=== PATIENT | female | born 1970 | race Caucasian/White ===

== ENCOUNTER → 2017-11-08 | Outpatient (CLI) | payer OTHER ==
[2017-11-08 14:31] VITALS: BP 130/82; PULSE 85; RESP 16
--- NOTE | 2017-11-08 15:08 | P.PAINCN ---
History of Present Illness - Reason for Consult Consult date: 11/08/17 - Chief Complaint neck pain - History of Present Illness This is a 47-year-old female presenting to the pain clinic for evaluation secondary multiple pain complaints. Patient is complaining mostly of neck pain which is been chronic in nature. She also has low back pain which is chronic in nature. She reports that her neck pain is worse than her back pain. She reports that her neck pain is mostly on the right side of her neck. She reports that the neck pain also extends into the right shoulder. She also reports multiple areas of tenderness to even light palpation over the neck and throughout the back. She reports her VAS today was from 6-10 out of 10 throughout most days and today her VAS is 7 out of 10. She reports that she has trialed multiple medications for fibromyalgia as well as pain medications. She reports she was seeing a pain doctor previously with trialed some injections and she is unsure what they were but it sounds like they were medial branch blocks. She never ended up having any further workup at that time consider no longer worked in that area. To resume her back pain she reports that she has back pain in the lumbar spine with all movements. She reports the back pain does not get better with anything the back pain is worse with all movements including at rest and lying down. She reports that the back pain is even worse when she elevates her legs off the bed. She reports no side effects from the medications. At this point she is currently taking gabapentin as she is tried Lyrica as well as Cymbalta for multiple years with no benefit. She has not had any physical therapy. In addition to above, 13-point review of systems is also negative for chest pain , shortness of breath, changes in vision, changes in hearing, new onset weakness , abdominal pain, diarrhea, extreme fatigue, malaise, fever, skin changes, homicidal or suicidal ideation, or bowel or bladder incontinence. Vital Signs: Reviewed in EMR Gen: WDWN, AAOx3, NAD HEENT: NCAT, EOMI, hearing grossly normal Pulm: resp unlabored Abd: soft, NT, ND Neck: supple, trachea midline ROM in flexion cervical spine: Normal range of motion ROM in extension cervical spine: Normal range of motion Cervical paravertebral tenderness: Tenderness to light touch Spurling's: Negative Upper extremity: She has normal 5 out of 5 strength in bilateral upper extremities she has decreased muscle tone bilaterally ROM in flexion lumbar spine: Limited range of motion with pain in all movements ROM in extension lumbar spine: Limited to about 5 Lumbar paravertebral tenderness: Tenderness to palpation throughout the lumbar spine Facet loading: Positive SI joint tenderness: Positive Straight leg raise: Negative bilaterally Lower extremity: decreased ROM dorsiflexion/plantarflexion strength, hip flexion/extension, and knee flexion/extension secondary to pain Neuro: CN II-XII grossly intact, muscle strength lower extremities PRESERVED Assessment: 1. Cervical spondylosis 2. Cervical degenerative disc disease 3. Cervical disc extrusion 4. Lumbar spondylosis Plan: 1. Explanation: Opioid and psychological risk scores were reviewed. Diagnoses , prognoses, and multiple treatment options including but not limited to physical therapy, interventional therapies, adjuvant medical therapies, narcotic medication therapies, and surgery were discussed with the patient and all questions were answered to the patient's satisfaction. 2. Opioid agreement: Patient signed narcotic agreement, and was orally counseled to not overuse, abuse, divert, or cell medications, and to take them as prescribed by only 1 healthcare provider. The patient was also counseled to take medications as prescribed by only 1 healthcare provider and to store opioid medications in the safe and preferably locked location. Patient was also counseled against driving or operating heavy equipment while using narcotic medications and also not use alcohol or any illicit or recreational drugs. The patient verbalized understanding that lack of compliance with any of the above and likely result in failure to renew narcotic prescriptions, possible discharge from the clinic, and possible legal ramifications thereafter if indicated. 3. Counseling: The patient was counseled extensively on SMOKING CESSATION, BODY MASS INDEX, EXERCISE. Specifically, the patient was instructed regarding the importance of smoking cessation, weight control, and exercise in the context of both chronic pain and overall health. 4. Procedures: Discussed in detail the patient regarding injections for her neck. I discussed a medial branch block in detail. Discussed the benefits and the risks with her and her . Patient is in agreement. I discussed expectations of the procedure. Discussed that the patient's sensitivity to light touch in the neck and tender points will not be improved but this may help in improving her range of motion and her pain in the neck only I explained to the patient that we will would perform a right-sided cervical medial branch block at the levels of C3 4, C56, C6 7, with local anesthetic only without any steroid. I advised her that we would give her sedation using Versed but no fund 5. Consultations: None 6. Investigations: maps 7. Medications: None 8. Disposition: Right-sided cervical medial branch block as noted above PQRS measures: 1-Patient's medications are documented in the chart. 2-Tobacco use is positive, counseling given. I advised the patient to stop smoking immediately as this can contribute reported to her health 3-Patient has not had a pneumococcal vaccine. 4-Advanced care planning discussed, patient unable to give. 5-Opioid contract signed with the patient. 6-Pain positive, follow-up visit or procedure scheduled 7-Patient's blood pressure measured and documented, and patient will follow up with the primary care due to hypertension. 8-Patient's weight was measured, and body mass index is above and counseling was done. I advised the patient trialed different diets exercise to improve her overall health 9-Patient WAS NOT identified as an unhealthy alcohol user. 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 History of Any Multi-Drug Resistant Organisms: None Reported Past Surgical History: Appendectomy, Heart Catheterization, Tonsillectomy, Tubal Ligation, Uterine Ablation Additional Past Surgical History / Comment(s): right hand tendon sx Past Anesthesia/Blood Transfusion Reactions: No Reported Reaction Past Psychological History: Anxiety, Depression, PTSD Smoking Status: Current every day smoker Past Alcohol Use History: None Reported Past Drug Use History: Marijuana - Past Family History Mother Family Medical History: Myocardial Infarction ([place]) Father Family Medical History: Myocardial Infarction ([place]) Medications and Allergies Allergies Allergy/AdvReac Type Severity Reaction Status Date / Time morphine Allergy Rash/Hives Verified 11/08/17 14:11 Penicillins Allergy Rash/Hives Verified 11/08/17 14:11 Physical Exam Vitals: Vital Signs Pulse Resp BP 11/08/17 14:18 85 16 130/82 Intake and Output 11/08/17 11/08/17 11/08/17 06:59 14:59 22:59 Other: Weight 73.936 kg PQRS Measure Charge Sheet PQRS Narrative: Smoking Status Current every day smoker Do You Want the Pneumonia No Vaccine AT THIS TIME? Blood Pressure 130/82 Pain Intensity [Bilateral 8 Lower Back] Scale Used Numeric (1 - 10) Hx Alcohol Use (MH) No
== END | disposition home or self-care (01) ==
LOC: PNWHC3 13:11
PROVIDERS: ATTEND Hospitalist
DX: M50.20 Other cervical disc displacement, unspecified cervical region (principal); M50.30 Other cervical disc degeneration, unspecified cervical region; M47.812 Spondylosis without myelopathy or radiculopathy, cervical region; M47.816 Spondylosis without myelopathy or radiculopathy, lumbar region; J45.909 Unspecified asthma, uncomplicated; I10 Essential (primary) hypertension; F17.200 Nicotine dependence, unspecified, uncomplicated; Z90.89 Acquired absence of other organs; Z98.51 Tubal ligation status; Z88.5 Allergy status to narcotic agent; Z88.0 Allergy status to penicillin
CPT/HCPCS: 99201

== ENCOUNTER 2018-08-25 21:25 | Observation (INO) | payer OTHER ==
[2018-08-25] MEDS ORDERED: SODIUM CHLORIDE 0.9% 1,000 ML IV STA ×2 (22:02)
[2018-08-25] MEDS ORDERED: KETOROLAC 30 MG/ML 1 ML VIAL IVP STA (22:03)
[2018-08-25] MEDS: NITROGLYCERIN SL TABS 0.4 MG TAB SUBLINGUAL STA ×3 (22:18→22:49)
[2018-08-25 22:19] LABS: Basophils # (A) 0.1 k/uL (0-0.2); Basophils % (A) 1 %; Eosinophils # (A) 0.2 k/uL (0-0.7); Eosinophils % (A) 3 %; HCT 41.9 % (34.0-46.0); HGB 14.4 gm/dL (11.4-16.0); Lymphocytes # (A) 2.3 k/uL (1.0-4.8); Lymphocytes % (A) 23 %; MCH 30.1 pg (25.0-35.0); MCHC 34.3 g/dL (31.0-37.0); MCV 87.8 fL (80.0-100.0); Mean Platelet Volume 8.4; Monocytes # (A) 0.6 k/uL (0-1.0); Monocytes % (A) 7 %; Neutrophils # (A) 6.4 k/uL (1.3-7.7); Neutrophils % (A) 66 %; Platelet Count 229 k/uL (150-450); RBC 4.77 m/uL (3.80-5.40); RDW 14.7 % (11.5-15.5); WBC 9.8 k/uL (3.8-10.6)
[2018-08-25 22:25] LABS: ALT 28 U/L (9-52); AST 25 U/L (14-36); African American GFR (CKD) >90 (>60 ml/min/1.73 sqM); Albumin 4.1 g/dL (3.5-5.0); Alkaline Phosphatase 94 U/L (38-126); Anion Gap 8 mmol/L; Blood Urea Nitrogen 10 mg/dL (7-17); Calcium 9.5 mg/dL (8.4-10.2); Carbon Dioxide 25 mmol/L (22-30); Chloride 107 mmol/L (98-107); Glucose 112 mg/dL (74-99); Magnesium 2.2 mg/dL (1.6-2.3); Non-African American GFR(CKD) 86 (>60 ml/min/1.73 sqM); Potassium 4.2 mmol/L (3.5-5.1); Sodium 140 mmol/L (137-145); Total Bilirubin 0.4 mg/dL (0.2-1.3); Total Protein 6.7 g/dL (6.3-8.2)
[2018-08-25 22:30] LABS: D-Dimer 0.37 mg/L FEU (<0.60); INR 0.9 (<1.2); Partial Thromboplastin Time 26.7 sec (22.0-30.0); Prothrombin Time 9.8 sec (9.0-12.0)
--- NOTE | 2018-08-25 22:59 | ED ---
Chest Pain HPI - General Source: patient, family, RN notes reviewed, old records reviewed Mode of arrival: wheelchair Limitations: no limitations <Cherelle Cancino - Last Filed: 08/26/18 00:11> <Meena Anne - Last Filed: 08/26/18 02:55> - General Chief Complaint: Chest Pain Stated Complaint: Syncope/CP Time Seen by Provider: 08/25/18 21:52 - History of Present Illness Initial Comments: Patient is a 48-year-old female who presents emergency Department after an episode of chest discomfort which later resulted to a syncopal episode after she was eating dinner today. Patient was seen at [facility] who did a complete workup including CT brain and C-spine, as well as chest x-ray and cardiac enzyme. Patient's labs and CTs reviewed to be normal, she was given aspirin that time. Patient's continues to state that she has 8 out of 10 chest pain. Patient refused EMS transfer from [place] and came down to this hospital on her own private vehicle. Patient's syncopal episode was asked by her significant other. She denies any fever or chills or cough. She states that her family history is positive for heart disease. She is a heavy smoker. Has history of hypertension and hyperlipidemia. Patient also complains of a headache upon arrival. She states that her chest pain seems to radiate towards her left jaw. (Cherelle Cancino) - Related Data Home Medications Medication Instructions Recorded Confirmed Beclomethasone Dipropionate [Qvar 1 puff INHALATION RT-BID 11/08/17 08/26/18 40 mcg Redihaler] Pantoprazole Sodium [Protonix] 20 mg PO DAILY 11/08/17 08/26/18 amLODIPine [Norvasc] 5 mg PO DAILY 11/08/17 08/26/18 Albuterol Inhaler [Ventolin Hfa 2 puff INHALATION RT-Q6H PRN 08/25/18 08/26/18 Inhaler] Losartan [Cozaar] 50 mg PO DAILY 08/25/18 08/26/18 Naproxen 375 mg PO Q8H PRN 08/25/18 08/26/18 Pravastatin Sodium [Pravachol] 20 mg PO HS 08/25/18 08/26/18 Topiramate [Topamax] 50 mg PO BID 08/25/18 08/26/18 Allergies Allergy/AdvReac Type Severity Reaction Status Date / Time morphine Allergy Rash/Hives Verified 08/25/18 23:58 Penicillins Allergy Rash/Hives Verified 08/25/18 23:58 Review of Systems ROS Other: All systems not noted in ROS Statement are negative. <Cherelle Cancino - Last Filed: 08/26/18 00:11> ROS Other: All systems not noted in ROS Statement are negative. <Meena Anne - Last Filed: 08/26/18 02:55> ROS Statement: Those systems with pertinent positive or pertinent negative responses have been documented in the HPI. EKG Findings - EKG Comments: EKG Findings:: EKG shows normal sinus rhythm normal EKG noted. Ventricular rate 67 bpm. Intervals 112 ms. Respirations a formal segs. QTc is 426/450 ms. 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 History of Any Multi-Drug Resistant Organisms: None Reported Past Surgical History: Appendectomy, Heart Catheterization, Tonsillectomy, Tubal Ligation, Uterine Ablation Additional Past Surgical History / Comment(s): right hand tendon sx Past Anesthesia/Blood Transfusion Reactions: No Reported Reaction Past Psychological History: Anxiety, Depression, PTSD Smoking Status: Current every day smoker Past Alcohol Use History: Occasional Past Drug Use History: Marijuana - Past Family History Mother Family Medical History: Myocardial Infarction ([place]) Father Family Medical History: Myocardial Infarction ([place]) <Cherelle Cacnino - Last Filed: 08/26/18 00:11> General Exam Limitations: no limitations <Cherelle Cancino - Last Filed: 08/26/18 00:11> - General Exam Comments Initial Comments: This is a 48-year-old female. Alert and oriented 3. No significant distress. General: Well appearing, well nourished, in no distress. Oriented x 3, normal mood and affect . Ambulating without difficulty. Skin: Good turgor, no rash, unusual bruising or prominent lesions Hair: Normal texture and distribution. HEENT: Head: Normocephalic, atraumatic, no visible or palpable masses, depressions, or scaring. Eyes: Visual acuity intact, conjunctiva clear, sclera non-icteric, EOM intact, PERRL. Ears: EACs clear, TMs translucent & cone of light visualized. hearing intact. Nose: No external lesions, mucosa non-inflamed, septum and turbinates normal Mouth: Mucous membranes moist, no mucosal lesions. Teeth/Gums: No obvious caries or periodontal disease. No gingival inflammation or significant resorption. Pharynx: Mucosa non-inflamed, no tonsillar hypertrophy or exudate Neck: Supple, without lesions, bruits, or adenopathy, thyroid non-enlarged and non-tender Heart: No cardiomegaly or thrills; regular rate and rhythm, no murmur or gallop Lungs: Clear to auscultation and percussion Abdomen: Bowel sounds normal, no tenderness, organomegaly, masses, or hernia Extremities: No amputations or deformities, cyanosis, edema or varicosities, peripheral pulses intact Musculoskeletal: Normal gait and station. No misalignment, asymmetry, crepitation, defects, tenderness, masses, effusions, decreased range of motion, instability, atrophy or abnormal strength or tone in the head, neck, spine, ribs, pelvis or extremities. Neurologic: CN 2-12 normal. Sensation to pain, touch, and proprioception normal. DTRs normal in upper and lower extremities. No pathologic reflexes. Psychiatric: Oriented X3, intact recent and remote memory, judgment and insight, normal mood and affect. 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 This is a 48-year-old female presents h[place] from today for evaluation for chest pain and syncopal episode. She had extensive workup at [facility]. Charting is attached. Upon vertigo transferred she's continues to complain of Chest Pain. She Did Receive Aspirin at Their Facility. Patient Is Given Nitro and Morphine Does Have Some Improvement of Her Symptoms. She Does Complain of a Headache and Jaw Pain. Patient's EKG Was Reviewed and Normal This Time. Her Initial Troponin Test Is Negative Here As Well. I Discussed with Multiple Risk Factors and Patient's Description of Anginal like Chest Pain We Will Admit the Patient for Evaluation for Cardiology. Patient Agrees to Treatment Plan Will Comply. (Cherelle Cancino) I was available for consultation in the emergency department. The history and physical exam were done by the midlevel provider. I was consulted for this patient's care. I reviewed the case with the midlevel provider and based on their presentation of the patient, I agree with the assessment, medical decision making and plan of care as documented. Chart was dictated using [employer] dictation software. Attempts were made to correct any dictation errors however some typographical errors may persist. (Meena Anne) Disposition Is patient prescribed a controlled substance at d/c from ED?: No Time of Disposition: 00:14 <Cherelle Cancino - Last Filed: 08/26/18 00:11> <Meena Anne - Last Filed: 08/26/18 02:55> Clinical Impression: Chest pain, Syncope Disposition: ADMITTED IP TO THIS HOSP Condition: Stable
[2018-08-25] MEDS ORDERED: NITROGLYCERIN SL TABS 0.4 MG TAB SUBLINGUAL PRN (23:33)
[2018-08-26] MEDS ORDERED: ALBUTEROL NEBULIZED 2.5 MG/3 ML INHALATION PRN (00:41)
[2018-08-26] MEDS ORDERED: ALPRAZolam 0.25 MG TAB PO PRN (01:03)
--- NOTE | 2018-08-26 01:12 | P.HPIM ---
History of Present Illness H&P Date: 08/26/18 Chief Complaint: chest pain 48-year-old female with history of hypertension and smoking Patient was at home staff baseline status of health when suddenly had felt chest pain. She was eating dinner then put the dishes away went back to sit on the table the table with her when she felt chest pressure over the left side squeezing in nature, 10 in severity radiating to the neck and left arm associated with nausea and vomiting sweating shortness of breath she felt like she is having a panic attack that she doesn't remember much until she fell off the chair and bumped her head and woke up she thinks that she passed out her confirms that she passed out is not available at her bedside at time of interview. He took her to [facility] where she was evaluated as seems like she had some cardiac enzymes EKG and CT of the head and C-spine and she was told that everything is fine . She was offered to be transferred by ambulance to our hospital she refused and decided to drive herself down here. Pain resolved after getting 3 tablets of nitro at our facility. EKG showed normal sinus rhythm. Labs are unremarkable. Patient admitted for observation to rule out acute coronary syndrome Patient denies any history of CAD in the past Review of Systems Pertinent positives as noted in HPI. 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 History of Any Multi-Drug Resistant Organisms: None Reported Past Surgical History: Appendectomy, Heart Catheterization, Tonsillectomy, Tubal Ligation, Uterine Ablation Additional Past Surgical History / Comment(s): right hand tendon sx Past Anesthesia/Blood Transfusion Reactions: No Reported Reaction Past Psychological History: Anxiety, Depression, PTSD Smoking Status: Current every day smoker Past Alcohol Use History: Occasional Past Drug Use History: Marijuana - Past Family History Mother Family Medical History: Myocardial Infarction ([place]) Father Family Medical History: Myocardial Infarction ([place]) Medications and Allergies Home Medications Medication Instructions Recorded Confirmed Type Beclomethasone Dipropionate [Qvar 1 puff INHALATION RT-BID 11/08/17 08/26/18 History 40 mcg Redihaler] Pantoprazole Sodium [Protonix] 20 mg PO DAILY 11/08/17 08/26/18 History amLODIPine [Norvasc] 5 mg PO DAILY 11/08/17 08/26/18 History Albuterol Inhaler [Ventolin Hfa 2 puff INHALATION RT-Q6H PRN 08/25/18 08/26/18 History Inhaler] Losartan [Cozaar] 50 mg PO DAILY 08/25/18 08/26/18 History Naproxen 375 mg PO Q8H PRN 08/25/18 08/26/18 History Pravastatin Sodium [Pravachol] 20 mg PO HS 08/25/18 08/26/18 History Topiramate [Topamax] 50 mg PO BID 08/25/18 08/26/18 History Allergies Allergy/AdvReac Type Severity Reaction Status Date / Time morphine Allergy Rash/Hives Verified 08/25/18 23:58 Penicillins Allergy Rash/Hives Verified 08/25/18 23:58 Physical Exam Vitals: Vital Signs Temp Pulse Pulse Resp BP Pulse Ox 08/25/18 22:50 72 16 125/87 96 08/25/18 22:20 78 08/25/18 22:18 72 16 138/94 96 08/25/18 21:31 97.5 F L 81 20 148/69 97 Intake and Output 08/25/18 08/25/18 08/26/18 14:59 22:59 06:59 Other: Weight 539.775 kg Constitutional: No acute distress, conversant, pleasant Eyes: Anicteric sclerae, moist conjunctiva, no lid-lag Pupils equal round reactive to light ENMT: NC/AT Oropharynx clear, no erythema, exudates Neck: Supple, FROM, no masses, or JVD No carotid bruits No thyromegaly Lungs: Clear to auscultation Clear to percussion Normal respiratory effort, no accessory muscle use Cardiovascular: Heart regular in rate and rhythm, No murmurs, gallops, or rubs No peripheral edema Abdominal: Soft Nontender, no guarding, rebound or rigidity Abdomen moving with respiration Normoactive bowel sounds No hepatomegaly, No splenomegaly No palpable mass No abdominal wall hernia noted Skin: Normal temperature, tone, texture, turgor No induration No subcutaneous nodules No rash, lesions No ulcers Extremities: No digital cyanosis No clubbing Pedal pulses intact and symmetrical Radial pulses intact and symmetrical No calf tenderness Psychiatric: Alert and oriented to person, place and time Appropriate affect fair judgement Neuro Muscles Strength 5/5 in all 4 extremities Sensation to light touch grossly present throughout Cranial nerves II-XII grossly intact No focal sensory deficits Lymphatics: no palpable cervical or supraclavicular , or inguinal lymph nodes Results CBC & Chem 7: 08/25/18 22:05 08/25/18 22:05 Labs: Abnormal Lab Results - Last 24 Hours (Table) 08/25/18 Range/Units 22:05 Glucose 112 H (74-99) mg/dL Assessment and Plan Assessment: 48-year-old female history of hypertension and hyperlipidemia admitted under observation with anticipated for the stent was in 48 hours for chest pain to rule out acute cardiac syndrome Plan: Atypical chest pain rule out History of anxiety and panic attacks Cardiac monitoring EKG shows normal sinus rhythm Trend cardiac enzymes Nitro when necessary Aspirin statin continue home medications Cardiology consult Xanax for anxiety Possible syncope Cardiac monitoring CT of the head and C-spine and [facility] was unremarkable DVT prophylaxis heparin subcu 3 times a day Smoking Patient counseled to quit tobacco smoking Surrogate decision-maker: Sister CODE STATUS:full code Discussed with: Patient, ER Anticipated discharge: <[address]: home A total of 60 minutes was spent on the care of this complex patient more than 50% of the time was spent in counseling and care coordination.
[2018-08-26 01:20] VITALS: BMI 192.0
[2018-08-26] MEDS: MELATONIN 3 MG TABLET PO SCH ×2 (01:27→23:03)
[2018-08-26 04:24] LABS: Basophils # (A) 0.1 k/uL (0-0.2); Basophils % (A) 1 %; Eosinophils # (A) 0.3 k/uL (0-0.7); Eosinophils % (A) 4 %; HGB 12.9 gm/dL (11.4-16.0); Lymphocytes # (A) 2.2 k/uL (1.0-4.8); Lymphocytes % (A) 36 %; MCH 29.7 pg (25.0-35.0); MCV 89.9 fL (80.0-100.0); Mean Platelet Volume 8.7; Monocytes # (A) 0.4 k/uL (0-1.0); Monocytes % (A) 6 %; Neutrophils # (A) 3.1 k/uL (1.3-7.7); Neutrophils % (A) 50 %; Platelet Count 210 k/uL (150-450); RBC 4.34 m/uL (3.80-5.40); RDW 15.2 % (11.5-15.5); WBC 6.2 k/uL (3.8-10.6)
[2018-08-26 04:26] LABS: African American GFR (CKD) >90 (>60 ml/min/1.73 sqM); Anion Gap 6 mmol/L; Blood Urea Nitrogen 10 mg/dL (7-17); Calcium 8.9 mg/dL (8.4-10.2); Carbon Dioxide 24 mmol/L (22-30); Chloride 109 mmol/L (98-107); Cholesterol 177 mg/dL (<200); Glucose 80 mg/dL (74-99); HDL Cholesterol 49 mg/dL (40-60); LDL Cholesterol,Calculated 105 mg/dL (0-99); Non-African American GFR(CKD) >90 (>60 ml/min/1.73 sqM); Potassium 4.2 mmol/L (3.5-5.1); Sodium 139 mmol/L (137-145); Triglycerides 117 mg/dL (<150)
[2018-08-26] MEDS: PANTOPRAZOLE 40 MG TABLET PO SCH (06:27)
[2018-08-26] MEDS: LOSARTAN 50 MG TAB PO SCH (08:36)
[2018-08-26] MEDS: TOPIRAMATE 25 MG TAB PO SCH ×2 (08:37→20:44)
[2018-08-26] MEDS: amLODIPine 5 MG TAB PO SCH (08:37)
[2018-08-26] MEDS: HEPARIN SODIUM,PORCINE 5,000 UNIT/ML 1 ML VIAL SQ SCH ×3 (08:40→23:03)
--- NOTE | 2018-08-26 08:57 | P.CRDCN ---
History of Present Illness Consult date: 08/26/18 Requesting physician: Kenrick Coronel Consult reason: sycope, chest pain Chief complaint: Chest pain and syncope History of present illness: This is a 48-year-old female with history of hypertension, hyperlipidemia, nicotine dependence, asthma, family history of premature coronary artery disease, fibromyalgia. Who initially presented to [facility]. According to the patient, she developed a sharp stabbing chest pain in the left side of her chest and shortly thereafter fell and passed out onto the floor hitting her head. The was present when this happened, he stated that she was very diaphoretic and turned pale in color. He did try to wake her up, and ultimately had her sit up, she woke up at that time. It lasted approximately 15-20 seconds in duration. Patient did lose bladder function at the time. According to the patient, she had one prior syncopal episode at the time she was having and neck procedure performed, she passed out, and had shaking of her extremities during that episode, it also lasted a few seconds. She's never been told in the past to have any history of seizures. She has had a stress test in the past approximately 3-4 years ago, with subsequent cardiac catheterization in [facility], she was told not to have any significant obstructive coronary artery disease at that time but was told to have small vessels. After the patient's episode at home on this occasion, she states that she then developed a pressure in the left side of her chest which lasted for several hours. Initially [facility] wanted to transfer her here, patient chose to have her bring her here instead. Laboratory and radiology testing at [facility] and reviewed. Blood pressure on arrival there 148/70 with a heart rate in the 70s, afebrile. White blood cell count 10.0, hemoglobin 14.8, platelet count 263, BUN 10, creatinine 0.9, troponin 0.01. CT of the brain did not reveal any acute event, CT of the spine no acute fracture. EKG on arrival there showed a normal sinus rhythm with no acute changes. Blood pressure here 140/70 with a heart rate in the 70s, 99% on room air. White blood cell count 6.2, hemoglobin 12.9, platelet count 210. D-dimer 0.3. Sodium 139, potassium 4.2, BUN 10 and creatinine 0.7. Troponins negative 2. Cholesterol 177, LDL 105, HDL 49 and triglycerides 117. 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 History of Any Multi-Drug Resistant Organisms: None Reported Past Surgical History: Appendectomy, Heart Catheterization, Tonsillectomy, Tubal Ligation, Uterine Ablation Additional Past Surgical History / Comment(s): right hand tendon sx Past Anesthesia/Blood Transfusion Reactions: No Reported Reaction Past Psychological History: Anxiety, Depression, PTSD Smoking Status: Current every day smoker Past Alcohol Use History: Occasional Past Drug Use History: Marijuana - Past Family History Mother Family Medical History: Myocardial Infarction ([place]) Father Family Medical History: Myocardial Infarction ([place]) Medications and Allergies Home Medications Medication Instructions Recorded Confirmed Type Beclomethasone Dipropionate [Qvar 1 puff INHALATION RT-BID 11/08/17 08/26/18 History 40 mcg Redihaler] Pantoprazole Sodium [Protonix] 20 mg PO DAILY 11/08/17 08/26/18 History amLODIPine [Norvasc] 5 mg PO DAILY 11/08/17 08/26/18 History Albuterol Inhaler [Ventolin Hfa 2 puff INHALATION RT-Q6H PRN 08/25/18 08/26/18 History Inhaler] Losartan [Cozaar] 50 mg PO DAILY 08/25/18 08/26/18 History Naproxen 375 mg PO Q8H PRN 08/25/18 08/26/18 History Pravastatin Sodium [Pravachol] 20 mg PO HS 08/25/18 08/26/18 History Topiramate [Topamax] 50 mg PO BID 08/25/18 08/26/18 History Allergies Allergy/AdvReac Type Severity Reaction Status Date / Time morphine Allergy Rash/Hives Verified 08/25/18 23:58 Penicillins Allergy Rash/Hives Verified 08/25/18 23:58 Physical Exam Vitals: Vital Signs Temp Pulse Pulse Pulse Resp BP BP 08/26/18 04:00 97.5 F L 57 L 18 140/73 08/26/18 01:11 78 16 139/100 08/25/18 22:50 72 16 125/87 08/25/18 22:20 78 08/25/18 22:18 72 16 138/94 08/25/18 21:31 97.5 F L 81 20 148/69 Pulse Ox 08/26/18 04:00 99 08/26/18 01:11 97 08/25/18 22:50 96 08/25/18 22:20 08/25/18 22:18 96 08/25/18 21:31 97 Intake and Output 08/25/18 08/26/18 08/26/18 22:59 06:59 14:59 Intake Total 100 Balance 100 Intake: Oral 100 Other: Voiding Method Toilet Weight 539.775 kg 88.4 kg PHYSICAL EXAMINATION: GENERAL: [id number] female in no acute distress at the time of my examination HEENT: Head is atraumatic, normocephalic. Pupils equal, round. Sclera anicteric. Conjunctiva are clear. Mucous membranes of the mouth are moist. Neck is supple. There is no elevated jugular venous pressure. No carotid bruit is heard. HEART EXAMINATION: Heart S1, S2 normal. No murmur or gallop heard. CHEST EXAMINATION: His reveal scattered coarse rhonchi and wheezing throughout ABDOMEN: Soft, nontender. Bowel sounds are heard. No organomegaly noted. EXTREMITIES: 2+ peripheral pulses with no evidence of peripheral edema and no calf tenderness noted. NEUROLOGIC patient is awake, alert and oriented 3. . Results 08/26/18 03:30 08/26/18 03:30 Cardiac Enzymes 08/25/18 08/25/18 08/26/18 Range/Units 22:05 22:05 03:30 AST 25 (14-36) U/L Troponin I <0.012 <0.012 (0.000-0.034) ng/mL Coagulation 08/25/18 Range/Units 22:05 PT 9.8 (9.0-12.0) sec APTT 26.7 (22.0-30.0) sec Lipids 08/26/18 Range/Units 03:30 Triglycerides 117 (<150) mg/dL Cholesterol 177 (<200) mg/dL HDL Cholesterol 49 (40-60) mg/dL CBC 08/25/18 08/26/18 Range/Units 22:05 03:30 WBC 9.8 6.2 (3.8-10.6) k/uL RBC 4.77 4.34 (3.80-5.40) m/uL Hgb 14.4 12.9 (11.4-16.0) gm/dL Hct 41.9 39.0 (34.0-46.0) % Plt Count 229 210 (150-450) k/uL Comprehensive Metabolic Panel 08/25/18 08/26/18 Range/Units 22:05 03:30 Sodium 140 139 (137-145) mmol/L Potassium 4.2 4.2 (3.5-5.1) mmol/L Chloride 107 109 H (98-107) mmol/L Carbon Dioxide 25 24 (22-30) mmol/L BUN 10 10 (7-17) mg/dL Creatinine 0.81 0.77 (0.52-1.04) mg/dL Glucose 112 H 80 (74-99) mg/dL Calcium 9.5 8.9 (8.4-10.2) mg/dL AST 25 (14-36) U/L ALT 28 (9-52) U/L Alkaline Phosphatase 94 (38-126) U/L Total Protein 6.7 (6.3-8.2) g/dL Albumin 4.1 (3.5-5.0) g/dL Current Medications Generic Name Dose Route Start Last Admin Trade Name Freq PRN Reason Stop Dose Admin Albuterol Sulfate 2.5 mg 08/26/18 00:41 Ventolin Nebulized INHALATION RT-Q6H PRN Shortness Of Breath Alprazolam 0.25 mg 08/26/18 01:03 08/26/18 01:44 Xanax PO 0.25 mg TID PRN Administration Anxiety Amlodipine Besylate 5 mg 08/26/18 09:00 08/26/18 08:37 Norvasc PO 5 mg DAILY URIEL Administration Aspirin 325 mg 08/26/18 09:00 08/26/18 08:36 Aspirin PO 325 mg DAILY URIEL Administration Fluticasone Propionate 1 puff 08/26/18 08:00 Flovent 44 Mcg Inhaler INHALATION RT-BID URIEL Heparin Sodium (Porcine) 5,000 unit 08/26/18 08:00 08/26/18 08:40 Heparin SQ 5,000 unit Q8HR URIEL Administration Losartan Potassium 50 mg 08/26/18 09:00 08/26/18 08:36 Cozaar PO 50 mg DAILY URIEL Administration Melatonin 3 mg 08/26/18 01:04 08/26/18 01:27 Melatonin PO Not Given HS [facility] Nitroglycerin 0.4 mg 08/25/18 23:33 08/26/18 01:44 Nitrostat SUBLINGUAL 0.4 mg Q5M PRN Administration Chest Pain Pantoprazole Sodium 20 mg 08/26/18 07:30 08/26/18 06:27 Protonix PO 20 mg DAILY@0730 URIEL Administration Pravastatin Sodium 20 mg 08/26/18 21:00 Pravachol PO HS URIEL Topiramate 50 mg 08/26/18 09:00 08/26/18 08:37 Topamax PO 50 mg BID URIEL Administration Intake and Output 08/25/18 08/26/18 08/26/18 22:59 06:59 14:59 Intake Total 100 Balance 100 Intake: Oral 100 Other: Voiding Method Toilet Weight 539.775 kg 88.4 kg 08/26/18 03:30 08/26/18 03:30 EKG Interpretations (text) EKG shows normal sinus rhythm with no acute changes. Assessment and Plan Plan: Assessment and plan #1 chest pain, sharp, atypical in nature, troponins negative 3, d-dimer negative. EKG shows normal sinus rhythm with no acute changes. A shunt states she underwent a cardiac catheterization 3 or 4 years ago a [facility] which did not reveal any significant obstructive coronary artery disease. #2 syncope, rule out cardiac causes, versus seizures #3 hypertension #4 hyperlipidemia #5 nicotine dependence #6 asthma #7 family history of premature coronary artery disease #8 fibromyalgia and chronic neck pain #9 lupus Plan We will obtain an echocardiogram with Doppler study as well as orthostatic blood pressure and heart rate every shift. Continue to monitor for any significant tachycardia or bradycardia arrhythmias. Obtain record of cardiac catheterization performed 3 years ago. Decrease aspirin 81 mg daily. Check TSH level. Further recommendations to follow. DNP note has been reviewed, I agree with a documented findings and plan of care. Patient was seen and examined.
[2018-08-26] MEDS ORDERED: ASPIRIN 325 MG TAB PO SCH (09:00)
[2018-08-26] MEDS: FLUTICASONE 44 MCG INHALER INHALATION SCH ×2 (09:10→20:02)
[2018-08-26] MEDS: ASPIRIN 81 MG PO SCH (09:18)
--- NOTE | 2018-08-26 11:22 | ECHOF ---
Referral Reason:chest pain MEASUREMENTS -------- HEIGHT: 167.6 cm WEIGHT: 88.0 kg BP: 140/73 RVIDd: 2.5 cm (< 3.3) IVSd: 0.9 cm (0.6 - 1.1) LVIDd: 4.7 cm (3.9 - 5.3) LVPWd: 1.0 cm (0.6 - 1.1) IVSs: 1.6 cm LVIDs: 2.0 cm LVPWs: 1.5 cm LAESV Index (A-L): 25.78 ml/m Ao Diam: 2.6 cm (2.0 - 3.7) AV Cusp: 2.0 cm (1.5 - 2.6) LA Diam: 2.9 cm (2.7 - 3.8) MV EXCURSION: 14.577 mm (> 18.000) MV EF SLOPE: 137 mm/s (70 - 150) EPSS: 0.5 cm MV E Naersh: 0.98 m/s MV DecT: 167 ms MV A Naresh: 0.63 m/s MV E/A Ratio: 1.54 RAP: 5.00 mmHg RVSP: 9.13 mmHg FINDINGS -------- Sinus rhythm. This was a technically good study. The left ventricular size is normal. Left ventricular wall thickness is normal. Overall left vent ricular systolic function is mildly impaired with, an EF between 45 - 50 %. Basal inferior LV wall motion is hypokinetic. Basal inferoseptal LV wall motion is hypokinetic. The right ventricle is normal in size. Normal LA size by volume 22+/-6 ml/m2. The right atrial size is normal. Interatrial and interventricular septum intact. The aortic valve is trileaflet, and appears structurally normal. No aortic stenosis or regurgitation. The mitral valve is normal. Mild mitral regurgitation is present. Mild tricuspid regurgitation present. Right ventricular systolic pressure is normal at < 35 mmHg. There is no pulmonic regurgitation present. The aortic root size is normal. Normal inferior vena cava with normal inspiratory collapse consistent with estimated right atrial pre ssure of 5 mmHg. There is no pericardial effusion. CONCLUSIONS -------- 1. Sinus rhythm. 2. This was a technically good study. 3. The left ventricular size is normal. 4. Left ventricular wall thickness is normal. 5. Overall left ventricular systolic function is mildly impaired with, an EF between 45 - 50 %. 6. Basal inferior LV wall motion is hypokinetic. 7. Basal inferoseptal LV wall motion is hypokinetic. 8. Normal LA size by volume 22+/-6 ml/m2. 9. The aortic valve is trileaflet, and appears structurally normal. No aortic stenosis or regurgitati on. 10. Mild mitral regurgitation is present. 11. Mild tricuspid regurgitation present. 12. Right ventricular systolic pressure is normal at < 35 mmHg. 13. There is no pulmonic regurgitation present. 14. The aortic root size is normal. 15. Normal inferior vena cava with normal inspiratory collapse consistent with estimated right atrial pressure of 5 mmHg. 16. There is no pericardial effusion. CLEANER AND PRESSER: Merly Doan RDCS
--- NOTE | 2018-08-26 13:38 | ECHOS ---
STRESS ECHOCARDIOGRAM DATE OF SERVICE: 08/26/2018 INDICATIONS: Chest pain. MEDICATIONS: BASELINE HEART RATE: 76 BASELINE BLOOD PRESSURE: 153/64 MAXIMUM HEART RATE: 148 MAXIMUM BLOOD PRESSURE: 188/91 85% MPHR: 145 100% MPHR: 170 METS: 7.9 MAXIMUM STAGE REACHED: III TOTAL EXERCISE TIME: 6 minutes 30 seconds CLINICAL INFORMATION: Baseline rhythm is sinus mechanism, rate of 76, normal axis and intervals. Normal electrocardiogram. Baseline blood pressure 153/64 mmHg. Patient exercised on Jos Emiguel protocol for 6 minutes 30 seconds reaching a peak rate of 148 beats per minute which is equal to 87% maximum predicted heart rate. Peak blood pressure 188/91 mmHg. Test was terminated secondary to fatigue and dyspnea. There was no chest pain. Electrocardiograph monitoring revealed a [address]-segment depression at peak exercise that resolved in recovery. Baseline echocardiogram revealed an area of hypokinesis involving the inferobasal inferoseptal wall with no worsening at peak exercise. CONCLUSION: 1. Decreased exercise tolerance with positive electrocardiograph stress testing. 2. Abnormal stress echocardiogram with a fixed hypokinesis involving the inferoseptal inferobasal lateral wall suggestive of prior myocardial infarction. There was no clear evidence of stress induced ischemia. MMODL / IJN: [id number] / [id number]
--- NOTE | 2018-08-26 15:50 | P.CNNES ---
History of Present Illness Consult date: 08/26/18 Requesting physician: Shiela Velazquze Reason for Consult: Syncope with question of seizure Chief complaint: "I passed out but I don't think it was a seizure" History of Present Illness: This is a 48-year-old right-handed female with a history of hypertension, hyperlipidemia, asthma, nicotine dependence and fibromyalgia. Patient had 2 syncopal episodes in her life. Both occurred within the past month. The first syncopal episode occurred while she was on the anesthesia table getting an epid ural injection by pain management. Patient recalled feeling a lot of pressure into her neck and then suddenly lost consciousness. She was told afterwards that there was some shaking movements that lasted perhaps at most a couple minutes. The second syncopal episode happened while the patient was at home. She had just finished having dinner, got up from the table and went into the kitchen to put away the dishes. While doing so, she felt a sudden onset of severe left-sided chest pain after which she proceeded to sit down. She then became pale and diaphoretic. Shortly thereafter, she lost consciousness for around 15-20 seconds. She did fall to the floor and struck her head. She also had mild urinary incontinence according to the patient. There was no fecal incontinence. There was no tongue or inner cheek tightening. There was no postictal confusion, headache or diffuse myalgias. There was no antecedent aura or prodrome. No repetitive behavior suspicious for automatism. Patient went to an outside hospital where she had a CT of the head that was reportedly unrevealing. When patient was in the emergency room, she has whole body shaking during which she was entirely awake and cognizant of these movements. Patient is currently admitted for a body workup due to her chest pain. Patient would like to get things checked out as she would like to continue driving. Review of Systems 14-point ROS performed and as per HPI. Neurologically, patient denies other episodes of decreased level or loss of consciousness except as per HPI, headache, epileptic seizure, changes in vision, diplopia, amaurosis, changes in hearing, facial droop, ptosis, vertigo, hearing loss, tinnitus, dysarthria, dysphagia, aphasia, other focal numbness/weakness not mentioned above, tremors, bowel incontinence or ataxia. 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 History of Any Multi-Drug Resistant Organisms: None Reported Past Surgical History: Appendectomy, Heart Catheterization, Tonsillectomy, Tubal Ligation, Uterine Ablation Additional Past Surgical History / Comment(s): right hand tendon sx Past Anesthesia/Blood Transfusion Reactions: No Reported Reaction Past Psychological History: Anxiety, Depression, PTSD Smoking Status: Current every day smoker Past Alcohol Use History: Occasional Past Drug Use History: Marijuana - Past Family History Mother Family Medical History: Myocardial Infarction ([place]) Father Family Medical History: Myocardial Infarction ([place]) Medications and Allergies Home Medications Medication Instructions Recorded Confirmed Type Beclomethasone Dipropionate [Qvar 1 puff INHALATION RT-BID 11/08/17 08/26/18 History 40 mcg Redihaler] Pantoprazole Sodium [Protonix] 20 mg PO DAILY 11/08/17 08/26/18 History amLODIPine [Norvasc] 5 mg PO DAILY 11/08/17 08/26/18 History Albuterol Inhaler [Ventolin Hfa 2 puff INHALATION RT-Q6H PRN 08/25/18 08/26/18 History Inhaler] Losartan [Cozaar] 50 mg PO DAILY 08/25/18 08/26/18 History Naproxen 375 mg PO Q8H PRN 08/25/18 08/26/18 History Pravastatin Sodium [Pravachol] 20 mg PO HS 08/25/18 08/26/18 History Topiramate [Topamax] 50 mg PO BID 08/25/18 08/26/18 History Allergies Allergy/AdvReac Type Severity Reaction Status Date / Time morphine Allergy Rash/Hives Verified 08/25/18 23:58 Penicillins Allergy Rash/Hives Verified 08/25/18 23:58 Physical Examination - Vital Signs Vital Signs: Vital Signs Temp Pulse Pulse Pulse Resp BP BP 08/26/18 11:15 62 16 134/62 08/26/18 08:25 98.1 F 58 L 16 115/61 08/26/18 04:00 97.5 F L 57 L 18 140/73 08/26/18 01:11 78 16 139/100 08/25/18 22:50 72 16 125/87 08/25/18 22:20 78 08/25/18 22:18 72 16 138/94 08/25/18 21:31 97.5 F L 81 20 148/69 Pulse Ox 08/26/18 11:15 100 08/26/18 08:25 96 08/26/18 04:00 99 08/26/18 01:11 97 08/25/18 22:50 96 08/25/18 22:20 08/25/18 22:18 96 08/25/18 21:31 97 Intake and Output 08/26/18 08/26/18 08/26/18 06:59 14:59 22:59 Intake Total 100 Balance 100 Intake: Oral 100 Other: Voiding Method Toilet Toilet # Voids 2 Weight 88.4 kg Gen NAD Pleasant and cooperative HEENT NCAT Sclera without icterus O/P clear Neck Supple No carotid bruit Cor RRR no m/r/g Lungs CTAB Abd Soft NTND +BS Ext Warm to touch No edema Neuro MS A+Ox4 Normal fluency Able to follow all commands CN PERRL VFF no APD EOMI no nystagmus or CHASE No facial asymmetry Masseter's symmetric Hearing intact to normal voice bilaterally Speech not dysarthric Equal elevation of palate Tongue midline Sym shrug and SCM bilaterally Motor Normal bulk/tone No pronator drift or tremors Strength 5/5 sym throughout Sens Intact to LT x4 No neglect Coord No dysmetria on FTN bilaterally DTRs 2+/4 sym throughout Toes downgoing bilaterally No clonus at achilles Gait Deferred Results - Laboratory Findings CBC and BMP: 08/26/18 03:30 08/26/18 03:30 Abnormal Lab Findings: Abnormal Labs 08/25/18 08/26/18 22:05 03:30 Chloride 109 H Glucose 112 H LDL Cholesterol, Calc 105 H Assessment and Plan Assessment: Syncopal episodes x2. From her history, they sound more like convulsive/vasovag al syncope and not epileptic seizure. Plan: -CTA Head/Neck to r/o a vascular/hemodynamic reason for her recurrent syncope. -Cardiac work-up per cardiology. -Orthostatics check. -Fall precautions. -Patient concerned about driving. I currently do not have a neurological reason against her driving. Her syncope work-up is in progress. -d/w patient and primary team. All questions answered. Thank you for this consultation. Please call with ?. Time with Patient: Greater than 30 (Time spent in direct patient care, greater than 50% of which was spent in [id number] counseling and coordination of care: 70 minutes.)
--- NOTE | 2018-08-26 20:09 | P.PN ---
Progress Note - Text Progress Note Date: 08/26/18 (delayed charting seen at 1200) Patient admitted after midnight. Checked on patient to see progress. Currently chest pain-free. Plan is for stress test this afternoon. Neurology consulted this patient presented with a syncopal event. at bedside and states that the patient had an episode of shaking, and was not rhythmic and not bilateral. He states she is just moving all over. Patient did have loss of bladder control, no loss of bowel control, will consult neurology. Remainder of orders reviewed.
[2018-08-26] MEDS ORDERED: PRAVASTATIN SODIUM 20 MG TAB PO SCH (21:00)
[2018-08-26] MEDS ORDERED: ATORVASTATIN 40 MG TAB PO SCH (21:00)
--- NOTE | 2018-08-26 22:57 | CT ---
EXAMINATION TYPE: CT angio head neck with contrast and with 3-D reconstruction renderings. DATE OF EXAM: 08/26/2018 HISTORY: Syncopal episode. CT DLP: 457.7 mGycm. Automated Exposure Control for Dose Reduction was Utilized. TECHNIQUE: CTA scan of the neck is performed with IV Contrast, patient injected with 50 mL of Isovue 370, axial images are obtained, coronal and sagittal reformatted images are reviewed. Three-D recons tructed images are created on an independent workstation and reviewed. FINDINGS: The bilateral carotid arterial systems are negative for hemodynamically significant stenosi s or dissection or aneurysm. The intracranial anterior circulation has normal appearance. The bilateral vertebral arterial systems are negative for hemodynamically significant stenosis or dis section or aneurysm. The intracranial posterior circulation has normal appearance. The venous structures of the neck and the dural venous sinuses are widely patent. There are no incidental intracranial or soft tissue neck findings. No incidental skeletal findings or upper thoracic findings. IMPRESSION: No significant abnormality is seen.
[2018-08-27] MEDS ORDERED: HYDROcodone/APAP 5-325MG 1 EACH TAB PO STA (02:33)
[2018-08-27 03:57] VITALS: BP 122/85
[2018-08-27] MEDS: PANTOPRAZOLE 40 MG TABLET PO SCH (06:14)
[2018-08-27] MEDS: amLODIPine 5 MG TAB PO SCH (08:33)
[2018-08-27] MEDS: LOSARTAN 50 MG TAB PO SCH (08:33)
[2018-08-27] MEDS: ASPIRIN 81 MG PO SCH (08:33)
[2018-08-27] MEDS: TOPIRAMATE 25 MG TAB PO SCH (08:34)
[2018-08-27] MEDS: HEPARIN SODIUM,PORCINE 5,000 UNIT/ML 1 ML VIAL SQ SCH (08:35)
--- NOTE | 2018-08-27 10:07 | P.PN ---
Subjective Progress Note Date: 08/27/18 Principal diagnosis: Syncope No events overnight. Patient denies CP or other focal neuro sx. No seizure activity. Wants to be discharged. Objective - Vital Signs Vital signs: Vital Signs Temp 97.7 F 08/27/18 03:56 Pulse 64 08/27/18 03:57 Resp 18 08/27/18 03:57 BP 122/85 08/27/18 03:56 Pulse Ox 98 08/27/18 03:56 Intake & Output 08/26/18 08/27/18 08/27/18 18:59 06:59 18:59 Intake Total 480 Balance 480 Weight 86.9 kg Intake: Oral 480 Other: Voiding Method Toilet Toilet # Voids 2 1 - Exam Gen NAD Pleasant and cooperative MS A+Ox4 Normal speech CN II-XII grossly intact no nystagmus Motor Normal bulk/tone No tremors TUCKER x4 Sens Intact to LT x4 Coord No dysmetria on FTN bilaterally DTRs 2+/4 sym throughout Gait Deferred CTA Head/Neck 08/26/18. No LVO/stenosis. - Labs CBC & Chem 7: 08/26/18 03:30 08/26/18 03:30 Assessment and Plan Assessment: Syncopal episodes x2. From her history, they sound more like convulsive/vaso vagal syncope and not epileptic seizure. Plan: -CTA Head/Neck did rule out a vascular/hemodynamic reason for her recurrent syncope. -Cardiac work-up per cardiology. -Orthostatics check. -Fall precautions. -Patient concerned about driving. I currently do not have a neurological reason against her driving. Her syncope work-up is in progress. -No further neuro recs. Will sign off. Please call with new ?. Time with Patient: Less than 30
[2018-08-27 10:36] VITALS: PULSE 56; RESP 16; TEMP 98
--- NOTE | 2018-08-27 10:59 | P.DS ---
Providers Date of admission: 08/26/18 14:11 Expected date of discharge: 08/27/18 Attending physician: Kenrick Coronel MD Consults: 08/25/18 23:34 Consult Physician Urgent Consulting Provider: Peter Vasquez Consult Reason/Comments: UA Do you want consulting provider notified?: Yes, Notify in am 08/26/18 13:29 Consult Physician Routine Consulting Provider: Teodoro Robbins Consult Reason/Comments: possible seizure vs syncope Do you want consulting provider notified?: Yes Primary care physician: Garcia Mcbride [facility] Course: Discharge Diagnosis: Chest pain Dyslipidemia Syncopal event Hypertension Asthma Tobacco abuse Hospital Course: Patient is a 48-year-old female past medical history of hypertension, tobacco abuse, degenerative disc disease, and lupus who presented to the emergency department with complaints of chest pain. Her also described a syncopal event. On arrival her vital signs are within normal limits. Laboratory analysis was unremarkable. Troponin was negative. EKG was nonischemic. Echocardiogram showed ejection fraction of 45-50% with basal inferior left all motion hypokinetic. She seen by cardiology who recommended stress test. Stress echo showed decreased exercise tolerance with fixed hypokinesis involving the inferior septal inferior basal lateral wall suggestive of prior myocardial ischemia but no evidence of stress-induced ischemia. There is concern for possible seizure versus syncope. Neurology was contacted. They do not feel that this is neurologic in origin. She underwent a CT of the head and neck which does not show any significant stenosis. Her LDL is slightly elevated at 105. Her statin was increased. She will follow up with cardiology in 2 weeks. She will go today to the office to have any event monitor placed. She also follow-up with her primary care physician. Patient seen and examined at bedside. No chest pain, shortness of breath, having some back and neck pain from the bed. Asking to be discharged. Vital signs reviewed and stable. General: non toxic, no distress, appears at stated age Derm: warm, dry Head: atraumatic, normocephalic, symmetric Eyes: EOMI, no lid lag, anicteric sclera Mouth: no lip lesion, mucus membranes moist Cardiovascular: S1S2 reg, no murmur, positive posterior tibial pulse bilateral, Lungs: CTA bilateral, no rhonchi, no rales , no accessory muscle use Neuro: CN II-XI grossly intact, no focal neuro deficits Psych: Alert, oriented, appropriate affect A total of 25 minutes of time were spent preparing this complex discharge summary . Pertinent Studies: Echocardiogram showed ejection fraction of 45-50% with basal inferior left all motion hypokinetic. Stress echo showed decreased exercise tolerance with fixed hypokinesis involving the inferior septal inferior basal lateral wall suggestive of prior myocardial ischemia but no evidence of stress-induced ischemia. CT of the head and neck- no significant abnormality Patient Condition at Discharge: Stable Plan - Discharge Summary Discharge Rx Participant: No New Discharge Prescriptions: No Action amLODIPine [Norvasc] 5 mg PO DAILY Pantoprazole Sodium [Protonix] 20 mg PO DAILY Beclomethasone Dipropionate [Qvar 40 mcg Redihaler] 1 puff INHALATION RT-BID Pravastatin Sodium [Pravachol] 20 mg PO HS Losartan [Cozaar] 50 mg PO DAILY Naproxen 375 mg PO Q8H PRN PRN Reason: Pain Topiramate [Topamax] 50 mg PO BID Albuterol Inhaler [Ventolin Hfa Inhaler] 2 puff INHALATION RT-Q6H PRN PRN Reason: Shortness Of Breath Discharge Medication List Beclomethasone Dipropionate [Qvar 40 mcg Redihaler] 1 puff INHALATION RT-BID 11/08/17 [History] Pantoprazole Sodium [Protonix] 20 mg PO DAILY 11/08/17 [History] amLODIPine [Norvasc] 5 mg PO DAILY 11/08/17 [History] Albuterol Inhaler [Ventolin Hfa Inhaler] 2 puff INHALATION RT-Q6H PRN 08/25/18 [History] Losartan [Cozaar] 50 mg PO DAILY 08/25/18 [History] Naproxen 375 mg PO Q8H PRN 08/25/18 [History] Pravastatin Sodium [Pravachol] 20 mg PO HS 08/25/18 [History] Topiramate [Topamax] 50 mg PO BID 08/25/18 [History] Follow up Appointment(s)/Referral(s): Grupo Blankenship MD [STAFF PHYSICIAN] - 2 Weeks Garcia Mcbride MD [Primary Care Provider] - 08/29/18 1:30 pm Patient Instructions/Handouts: Chest Pain (DC), How to Stop Smoking (DC), Syncope (DC) Activity/Diet/Wound Care/Special Instructions: Please send records to Dr. Callaway office prior to discharge from hospital.
== END 2018-08-27 11:15 | disposition home or self-care (01) ==
LOC: EC 21:25 → 3SCARD 08-26 00:35 → OBSVTOIN 08-26 14:11 → INTOOBSV 08-26 14:11 → UNDODISIN 08-27 11:15
PROVIDERS: ADMIT Internal Medicine; ATTEND Internal Medicine
DX: R07.9 Chest pain, unspecified (principal); R55 Syncope and collapse; E78.5 Hyperlipidemia, unspecified; M32.9 Systemic lupus erythematosus, unspecified; I10 Essential (primary) hypertension; J45.909 Unspecified asthma, uncomplicated; M79.7 Fibromyalgia; F32.9 Major depressive disorder, single episode, unspecified; F41.0 Panic disorder [episodic paroxysmal anxiety]; F41.9 Anxiety disorder, unspecified; F43.10 Post-traumatic stress disorder, unspecified; R32 Unspecified urinary incontinence; R11.2 Nausea with vomiting, unspecified; R61 Generalized hyperhidrosis; M16.11 Unilateral primary osteoarthritis, right hip; G89.29 Other chronic pain; F17.200 Nicotine dependence, unspecified, uncomplicated; M54.2 Cervicalgia; Z79.51 Long term (current) use of inhaled steroids; Z79.899 Other long term (current) drug therapy; Z88.5 Allergy status to narcotic agent; Z88.0 Allergy status to penicillin; Z90.49 Acquired absence of other specified parts of digestive tract; Z98.51 Tubal ligation status; Z82.49 Family history of ischemic heart disease and other diseases of the circulatory system; W07.XXXA Fall from chair, initial encounter
CPT/HCPCS: 96361 ×3; 96372 ×2; 93005 ×2; 96374; 99285; 36415; 94640 ×2; 93306; 93351; 85379; 83880; 80061; 80053; 80048; 83735; 84443; 84484 ×2; 85025 ×2; 85610; 85730; 70496; 70498; G0378 ×2; J1644 ×2; J1885; Q9967